=== PATIENT | male | born 1965 | race Caucasian/White ===

== ENCOUNTER 2016-08-25 09:52 | Outpatient (CLI) | payer OTHER ==
[2016-08-25 10:32] LABS: BASOPHILS % (AUTO) 0.6 % (0.0-2.0); EOSINOPHILS # (AUTO) 0.1 K/uL (0.0-0.4); EOSINOPHILS % (AUTO) 1.1 % (0.0-4.0); HEMATOCRIT 48.4 % (36-54); HEMOGLOBIN 16.4 g/dL (14.0-18.0); LYMPHOCYTES # (AUTO) 2.2 K/uL (1.0-5.5); LYMPHOCYTES % (AUTO) 32.1 % (20.5-51.5); MEAN CORPUSCULAR HEMOGLOBIN 29 pg (27-31); MEAN CORPUSCULAR HGB CONC 34 % (32-36); MEAN CORPUSCULAR VOLUME 84 fL (79.0-98.0); MONOCYTES # (AUTO) 0.3 K/uL (0.0-1.0); MONOCYTES % (AUTO) 4.7 % (1.7-9.3); NEUTROPHILS # (AUTO) 4.3 K/uL (1.8-7.7); NEUTROPHILS % (AUTO) 61.5 % (40.0-70.0); PLATELET COUNT (AUTO) 205 K/uL (130-430); RED BLOOD CELL COUNT(AUTO) 5.74 MIL/uL (4.2-6.2); RED CELL DISTRIBUTION WIDTH 12.6 % (9.0-15.0); WHITE BLOOD COUNT (AUTO) 6.9 K/uL (4.8-10.8)
[2016-08-25 10:45] LABS: ALBUMIN 4.3 g/dL (3.4-4.8); CALCIUM 9.8 mg/dL (8.4-11.0); CREATININE 0.97 mg/dL (0.55-1.30); POTASSIUM 5.1 mmol/L (3.5-5.1); TOTAL BILIRUBIN 0.5 mg/dL (0.0-1.0); TOTAL PROTEIN, SERUM 8.2 g/dL (6.4-8.3)
== END 2016-08-25 20:20 | disposition home or self-care (01) ==
LOC: SLB 09:52
PROVIDERS: ATTEND Internal Medicine
DX: K59.00 Constipation, unspecified (principal); K64.8 Other hemorrhoids
CPT/HCPCS: 36415; 80053; 85025

== ENCOUNTER 2016-10-07 07:36 | Outpatient (CLI) | payer OTHER ==
[2016-10-07] MEDS ORDERED: DIATR MEGLU/DIATRIZ SOD 30 ML SOLUTION PO ONE (08:08)
== END 2016-10-07 20:04 | disposition home or self-care (01) ==
LOC: SCT 07:36
PROVIDERS: ATTEND Internal Medicine
DX: K76.89 Other specified diseases of liver (principal); M47.896 Other spondylosis, lumbar region
CPT/HCPCS: 74176; Q9964

== ENCOUNTER 2016-11-18 10:10 | Outpatient (CLI) | payer OTHER ==
[2016-11-18 11:09] LABS: ALANINE AMINOTRANSFERASE 45 U/L (12-78); ALBUMIN 4.1 g/dL (3.4-4.8); ASPARTATE AMINOTRANSFERASE 23 U/L (10-37); BILIRUBIN,DIRECT 0.2 mg/dL (0.0-0.3); CALCIUM 9.3 mg/dL (8.4-11.0); CHLORIDE 103 mmol/L (98-107); CHOLESTEROL 225 mg/dL (<200); GLUCOSE 108 mg/dL (70-99); HDL CHOLESTEROL 44 mg/dL (>45); LDL CHOLESTEROL 161 mg/dL (<100); POTASSIUM 3.9 mmol/L (3.5-5.1); SODIUM SERUM 135 mmol/L (136-145); TOTAL BILIRUBIN 0.7 mg/dL (0.0-1.0); TOTAL PROTEIN, SERUM 7.7 g/dL (6.4-8.3); TRIGLYCERIDES 112 mg/dL (30-150); UREA NITROGEN, BLOOD 7 mg/dL (8-21)
[2016-11-18 11:15] LABS: ANION GAP < 3 (5-15); GFR AFRICAN AMERICAN 83 mL/min (>90)
[2016-11-19 13:39] LABS: HEMOGLOBIN A1C 5.8 % (4.8-5.6)
== END 2016-11-18 20:58 | disposition home or self-care (01) ==
LOC: SLB 10:10
PROVIDERS: ATTEND Internal Medicine
DX: E55.9 Vitamin D deficiency, unspecified (principal); E78.5 Hyperlipidemia, unspecified; E03.0 Congenital hypothyroidism with diffuse goiter; R73.09 Other abnormal glucose
CPT/HCPCS: 36415; 80053; 80061; 82248-TC; 82306; 83036

== ENCOUNTER 2017-01-13 11:08 | Outpatient (CLI) | payer OTHER ==
[2017-01-13 11:52] LABS: CALCIUM 8.9 mg/dL (8.4-11.0); CREATININE 0.94 mg/dL (0.55-1.30); POTASSIUM 3.9 mmol/L (3.5-5.1)
[2017-01-13 11:56] LABS: ALBUMIN 3.9 g/dL (3.4-4.8); TOTAL BILIRUBIN 0.7 mg/dL (0.0-1.0); TOTAL PROTEIN, SERUM 7.7 g/dL (6.4-8.3)
[2017-01-14 12:46] LABS: HEMOGLOBIN A1C 5.6 % (4.8-5.6)
== END 2017-01-13 20:00 | disposition home or self-care (01) ==
LOC: SLB 11:08
PROVIDERS: ATTEND Internal Medicine
DX: E78.5 Hyperlipidemia, unspecified (principal); R73.03 Prediabetes; R79.89 Other specified abnormal findings of blood chemistry
CPT/HCPCS: 36415; 80053; 80061; 82306; 83036

== ENCOUNTER 2017-05-01 07:25 | Day surgery (SDC) | payer OTHER ==
[2017-05-01] MEDS ORDERED: MEPERIDINE HCL/PF 100 MG/ML AMP ONE (08:16)
[2017-05-01] MEDS: MIDAZOLAM HCL 5 MG/5 ML VIAL ONE ×4 (10:29→10:37)
[2017-05-01 17:32] VITALS: BP_SYST 108
== END 2017-05-01 12:05 | disposition home or self-care (01) ==
LOC: SDS 07:25 → SMU 07:25 → SDS 12:05
PROVIDERS: ATTEND Internal Medicine Gastroenterology
DX: K64.8 Other hemorrhoids (principal); K57.30 Diverticulosis of large intestine without perforation or abscess without bleeding; Z87.19 Personal history of other diseases of the digestive system; E78.00 Pure hypercholesterolemia, unspecified
CPT/HCPCS: 45378; J2175; J2250

== ENCOUNTER 2017-07-22 09:30 | Outpatient (CLI) | payer OTHER ==
[2017-07-22 10:27] LABS: CALCIUM 9.4 mg/dL (8.4-11.0); CREATININE 0.89 mg/dL (0.55-1.30); POTASSIUM 4.2 mmol/L (3.5-5.1)
[2017-07-22 10:33] LABS: ALBUMIN 3.8 g/dL (3.4-4.8); TOTAL BILIRUBIN 0.9 mg/dL (0.0-1.0)
[2017-07-23 17:26] LABS: HEMOGLOBIN A1C 5.7 % (4.8-5.6)
== END 2017-07-22 19:02 | disposition home or self-care (01) ==
LOC: SLB 09:30
PROVIDERS: ATTEND Internal Medicine
DX: Z00.00 Encounter for general adult medical examination without abnormal findings (principal)
CPT/HCPCS: 36415; 80053; 80061; 82306; 83036

== ENCOUNTER 2017-09-11 07:44 | Day surgery (SDC) | payer OTHER ==
[2017-09-11] MEDS ORDERED: MIDAZOLAM HCL 5 MG/5 ML VIAL ONE ×2 (08:01→08:02)
[2017-09-11] MEDS ORDERED: MEPERIDINE HCL/PF 100 MG/ML AMP ONE (08:01)
[2017-09-11 13:54] VITALS: BP_SYST 128
== END 2017-09-11 10:30 | disposition home or self-care (01) ==
LOC: SDS 07:44 → SMU 07:44 → SDS 10:30
PROVIDERS: ATTEND Internal Medicine Gastroenterology
DX: K64.8 Other hemorrhoids (principal); K64.4 Residual hemorrhoidal skin tags; Z86.010 Personal history of colon polyps
CPT/HCPCS: 45350; J2175; J2250

== ENCOUNTER 2018-05-13 11:37 | Outpatient (CLI) | payer OTHER ==
[2018-05-13 12:30] LABS: ALBUMIN 3.9 g/dL (3.4-4.8); CALCIUM 9.4 mg/dL (8.4-11.0); CREATININE 0.86 mg/dL (0.55-1.30); POTASSIUM 3.8 mmol/L (3.5-5.1); TOTAL BILIRUBIN 0.7 mg/dL (0.0-1.0)
[2018-05-14 08:11] LABS: PROSTATE SPECIFIC AG 0.9 ng/mL (0.0-4.0)
== END 2018-05-13 18:33 | disposition home or self-care (01) ==
LOC: SLB 11:37
PROVIDERS: ATTEND Internal Medicine
DX: Z12.5 Encounter for screening for malignant neoplasm of prostate (principal); Z00.01 Encounter for general adult medical examination with abnormal findings; Z23 Encounter for immunization; E55.9 Vitamin D deficiency, unspecified
CPT/HCPCS: 36415; 80053; 80061; 82306; 83051; G0103

== ENCOUNTER 2018-05-25 05:52 | Inpatient (IN) | payer OTHER ==
[~2018-05-25] VITALS: Ht 167.6 cm; Wt 82.6 kg
[2018-05-25 05:52] VITALS: BP_SYST 152
--- NOTE | 2018-05-25 05:52 | NUR ---
Placed in room 04 . Placed on cardiac nurse, blood pressure machine and pulse oximeter. To gown for exam. Side rails up. Report given to RN.
--- NOTE | 2018-05-25 05:58 | NUR ---
Pt is AAO x 4 and ambulatory complaining left sided chest pain for about 2 and a half hours. Pt states pain does not radiate anywhere else. Pt denies N/V, fever. Per patient, at times "he feels as if he has to catch his breath." Pt speaking in full sentences. No other injuries/complaints per patient or noetd.
--- NOTE | 2018-05-25 06:23 | NUR ---
ER Dr. Robb at bedside examining patient.
[2018-05-25] MEDS ORDERED: NACL 0.9% 1,000 ML IV ONE (06:30)
[2018-05-25] MEDS ORDERED: NITROGLYCERIN 0.4 MG TAB.SUBL SL ONE (06:30)
[2018-05-25] MEDS ORDERED: ASPIRIN 81 MG TAB.CHEW PO ONE ×2 (06:30→06:45)
--- NOTE | 2018-05-25 06:31 | NUR ---
Xray at bedside. Pt tolerated well.
--- NOTE | 2018-05-25 06:47 | NUR ---
Medications were given, pt tolerated well. No adverse reaction, will continue to monitor.
[2018-05-25 07:07] LABS: BILIRUBIN,URINE NEGATIVE (NEGATIVE); BLOOD, URINE NEGATIVE (NEGATIVE); CLARITY/URINE CLEAR (CLEAR); COLOR,URINE YELLOW (YELLOW); GLUCOSE,URINE NEGATIVE (NEGATIVE); KETONES,URINE NEGATIVE (NEGATIVE); LEUKOCYTE ESTERASE ,URINE NEGATIVE (NEGATIVE); NITRITE, URINE NEGATIVE (NEGATIVE); PH,URINE 6.5 (5.0-8.0); PROTEIN URINE NEGATIVE (NEGATIVE); UROBILINOGEN,URINE 0.2 (0.2-1.0)
[2018-05-25 07:10] LABS: BASOPHILS # (AUTO) 0.1 K/uL (0.0-0.2); BASOPHILS % (AUTO) 0.9 % (0.0-2.0); EOSINOPHILS # (AUTO) 0.1 K/uL (0.0-0.4); EOSINOPHILS % (AUTO) 1.5 % (0.0-4.0); HEMOGLOBIN 15.5 g/dL (14.0-18.0); LYMPHOCYTES # (AUTO) 1.9 K/uL (1.0-5.5); LYMPHOCYTES % (AUTO) 30.9 % (20.5-51.5); MEAN CORPUSCULAR HEMOGLOBIN 29 pg (27-31); MEAN CORPUSCULAR HGB CONC 33 % (32-36); MEAN CORPUSCULAR VOLUME 88 fL (79.0-98.0); MONOCYTES # (AUTO) 0.4 K/uL (0.0-1.0); MONOCYTES % (AUTO) 6.9 % (1.7-9.3); NEUTROPHILS # (AUTO) 3.6 K/uL (1.8-7.7); NEUTROPHILS % (AUTO) 59.8 % (40.0-70.0); PLATELET COUNT (AUTO) 202 K/uL (130-430); RED BLOOD CELL COUNT(AUTO) 5.32 MIL/uL (4.2-6.2); RED CELL DISTRIBUTION WIDTH 12.4 % (9.0-15.0); WHITE BLOOD COUNT (AUTO) 6.1 K/uL (4.8-10.8)
--- NOTE | 2018-05-25 07:10 | NUR ---
Report given to PUMA Martinez. All care endorsed.
--- NOTE | 2018-05-25 07:11 | NUR ---
Pt AAO x 4 no c/o SOB, CP 2/10 tolerable per pt. Pt has noacute distress noted at this time. Continuing to monitor.
[2018-05-25 07:17] LABS: CALCIUM 9.3 mg/dL (8.4-11.0); CREATININE 0.75 mg/dL (0.55-1.30); POTASSIUM 3.7 mmol/L (3.5-5.1)
[2018-05-25 07:19] LABS: PROTHROMBIN TIME 9.9 SECS (9.5-12.5)
[2018-05-25 07:22] LABS: ALBUMIN 3.6 g/dL (3.4-4.8); TOTAL BILIRUBIN 0.5 mg/dL (0.0-1.0)
[2018-05-25 08:03] LABS: CKMB RELATIVE INDEX 0.5 (0.0-2.9); CREATINE KINASE MB 2.1 ng/mL (0-3.6)
[2018-05-25] MEDS ORDERED: ONDANSETRON HCL 4 MG/2 ML VIAL IVP PRN (08:15)
[2018-05-25] MEDS ORDERED: NITROGLYCERIN LINGUAL 400 mCg/SPRAY TL PRN (08:15)
[2018-05-25] MEDS ORDERED: ACETAMINOPHEN 325 MG TABLET PO PRN (08:15)
[2018-05-25] MEDS ORDERED: MORPHINE 2 MG/ML INJ. SYRINGE IVP PRN (08:15)
[2018-05-25] MEDS ORDERED: IBUPROFEN 800 MG TABLET PO PRN (08:15)
[2018-05-25] MEDS ORDERED: MORPHINE 4 MG/ML INJ. SYRINGE IVP PRN (08:15)
--- NOTE | 2018-05-25 08:15 | NUR ---
Patient will be admitted to care of Dr. Hinojosa. Admitted to Telemetry unit. Will go to room 102B. Summary report printed. Report will be given at bedside.
--- NOTE | 2018-05-25 08:34 | NUR ---
CONSULTATION PAGED REASON FOR CONSULTATION:CHEST PAIN WAS CONSULT CALLED?Y PERSON WHO WAS NOTIFIED:PATRIA CONSULTING PHYSICIAN:DAVID DEY DIRECTOR OF STAFF DEVELOPMENT SPECIALTY:CARDIO DIRECTOR OF STAFF DEVELOPMENT PHONE NUMBER:[phone] ORDERING PHYSICIAN:JACQUELYN TAY
--- NOTE | 2018-05-25 08:38 | NUR ---
ADMISSION NOTE Received patient from ER via yaneth, received report from Ted BARTHOLOMEW. Patient admitted with diagnosis of Chest Pain. Patient oriented to hospital routine, call light, toileting and safety-patient verbalized understanding.
--- NOTE | 2018-05-25 08:40 | NUR ---
CONSULT CARDIOLOGY CHEST PAIN DR LABOY [phone] S/W NANETTE EXCHANGE@ [phone]
[2018-05-25 08:44] VITALS: BP_SYST 146
--- NOTE | 2018-05-25 09:00 | NUR ---
OPENING NOTES, RECEIVED PT IN BED, PT CAME FROM HOME, CHIEF COMPLAIN WAS CHEST PAIN THIS AM, DX IS CHEST PAIN, PT IS AAOX4, C/O OF TOLERABLE PAIN ON THE LEFT CHEST, 09/26. NO SOB, NO RESP DISTRESS. NO EDEMA NOTED, SL ON LEFT AC #20, INTACT AND PATENT. PT EDUCATED ON THE USE OF CALL LIGHT AND TV AND BED CONTROLS. ENCOURAGED TO CALL FOR ASSIST AND PAIN MEDICATIONS. SAFETY PRECAUTION IN PLACE. CALL LIGHT IN REACH, BED IN LOW POSITION. WILL CONT TO MONITOR.
[2018-05-25] MEDS: ASPIRIN 81 MG TAB.CHEW PO SCH (09:39)
[2018-05-25 11:06] VITALS: BP_SYST 142
--- NOTE | 2018-05-25 11:28 | NUR ---
PT IN BED, NO C/O PAIN. NO SOB, NO DISTRESS. CALL LIGHT IN REACH. SAFETY PRECAUTION IN PLACE. WILL CONT TO MONITOR.
--- NOTE | 2018-05-25 12:47 | NUR ---
PT IN BED, EATING LUNCH, NO C/O PAIN. NO SOB, NO DISTRESS. PT REMINDED NO TO TAKE ANY CAFFEINE OR ANY CAFFEINE CONTAINING FOOD OR DRINKS. PT VERBALIZED UNDERSTANDING. WILL CONT TO MONITOR.
[2018-05-25] MEDS: NORMAL SALINE 5 ML DISP.SYRIN IVF SCH ×2 (14:00→21:45)
[2018-05-25 15:27] VITALS: BP_SYST 129
--- NOTE | 2018-05-25 19:05 | NUR ---
CLOSING NOTES, PT HAS BEEN STABLE, CHEST PAIN TOLERABLE. PT AWARE OF NPO ORDER FOR STRESS TEST IN AM. WILL ENDORSE TO NIGHT RN.
[2018-05-25] MEDS ORDERED: ALPRAZolam 0.25 MG TABLET PO ONE (19:15)
--- NOTE | 2018-05-25 19:40 | NUR ---
OPENING NOTE Patient resting in the bed. No acute distress. Respiration even and unlabored. AAO x 4. Denied of chest pain. Skin warm and dry to touch. SL intact to LFA, no redness, no swelling, patent. Discussed the safety issue, use call light when need help, and plan of care, verbally understanding. Safety measure maintained. Bed locked in low position, side rails up. Refused bed alarm, explain risk and benefit, verbally understanding. Call light within reached. Will continue to monitor.
[2018-05-25 19:50] VITALS: BP_SYST 136
--- NOTE | 2018-05-25 21:50 | NUR ---
XANAX GIVEN Patient c/o left chest feeling pressure and left should pain. Xanax 0.5mg Po given as ordered. No acute distress noted. Safety measure maintained. Call light within reached. Bed locked in low position, side rails up. Continue to monitor.
[2018-05-26] VITALS: BP_SYST 126
--- NOTE | 2018-05-26 04:35 | NUR ---
ROUND Patient sleeping in the bed comfortable. Respiration even and unlabored. No acute distress. Safety measure maintained. Bed locked in low position, side rails up. Call light within reached. Continue to monitor.
[2018-05-26] MEDS: NORMAL SALINE 5 ML DISP.SYRIN IVF SCH ×3 (05:24→21:08)
--- NOTE | 2018-05-26 06:41 | NUR ---
CLOSING NOTE Patient resting in the bed and watching TV. No acute distress. Respiration even and unlabored. Denied of any chest pain/discomfort. Denied of headache, dizziness. Skin warm and dry to touch. NPO since midnight. All needs met. Hourly rounding during shift. Safety measure maintained. Bed locked in low position, side rails up. Refused bed alarm, risk and benefit explained, verbally understanding. Call light within reached. Will endorse to morning shift nurse.
--- NOTE | 2018-05-26 07:50 | NUR ---
INITIAL NOTE RECEIVED PATIENT FROM GAS TENDER. PATIENT AWAKE, ALERT AND ORIENTED. PATIENT AMBULATING FROM BATHROOM WITH STEADY GAIT. DENIES ANY PAIN/DISCOMFORT AT THIS TIME. ROOM AIR. NO ACUTE DISTRESS. NO SOB. RESPIRATION EVEN AND UNLABORED. SKIN WARM AND DRY TO TOUCH. IV INTACT AND PATENT. BED IN LOW AND LOCKED POSITION. SIDERAIL UP X2. PATIENT REFUSED BED ALARM WITH RISKS EXPLAINED. ORIENTED PATIENT TO ROOM, BED AND CALL LIGHT. ALL NEEDS MET. CALL LIGHT IN REACH. CONT TO MONITOR. DISCUSSED PLAN OF CARE WITH PATIENT; PATIENT VERBALIZED UNDERSTANDING.
[2018-05-26 08:00] VITALS: BP_SYST 142
--- NOTE | 2018-05-26 08:50 | NUR ---
OFF UNIT PATIENT STABLE AND TAKEN TO NUCLEAR MEDICINE VIA WHEELCHAIR.
[2018-05-26] MEDS: ASPIRIN 81 MG TAB.CHEW PO SCH (09:00)
[2018-05-26] MEDS ORDERED: REGADENOSON 0.4 MG/5 ML SYRINGE IVP ONE (09:15)
--- NOTE | 2018-05-26 10:06 | NUR ---
ON UNIT PATIENT RETURNED FROM RADIOLOGY. VITAL SIGN STABLE. DENIES ANY PAIN/DISCOMFORT. ALL NEEDS MET. CONT TO MONITOR. CALL LIGHT IN REACH
[2018-05-26 11:24] VITALS: BP_SYST 141
--- NOTE | 2018-05-26 11:39 | NUR ---
NOTE PATIENT SITTING UP IN BED WATCHING TV. DENIES ANY PAIN/DISCOMFORT. CONT TO REFUSE BED ALARM. ALL NEEDS MET. CONT TO MONITOR. AWAITING FOR 2ND PART OF STRESS TEST AROUND 1300
--- NOTE | 2018-05-26 13:02 | NUR ---
OFF UNIT PATIENT TAKEN BACK TO RADIOLOGY VIA WHEELCHAIR. VITAL SIGN STABLE
--- NOTE | 2018-05-26 13:45 | NUR ---
ON UNIT PATIENT STABLE. RESTING IN BED. ALL NEEDS MET. PATIENT REFUSE BED ALARM. CONT TO MONITOR. CALL LIGHT IN REACH
[2018-05-26 15:21] VITALS: BP_SYST 139
--- NOTE | 2018-05-26 15:40 | NUR ---
NOTE PATIENT RESTING IN BED WATCHING TV. DENIES PAIN. NO ACUTE DISTRESS. CONT TO MONITOR. FAMILY AT BEDSIDE. CALL LIGHT IN REACH
--- NOTE | 2018-05-26 16:28 | NUR ---
SPOKE TO AND REPORTED THAT RESULTS WERE RELAYED TO BUT WANTS TO REVIEW RESULTS HIMSELF BEFORE CLEARING PATIENT. PER TO UPDATE HIM WHEN MAKES A DECISION
--- NOTE | 2018-05-26 17:18 | NUR ---
SPOKE TO ON PHONE. PER MD STRESS TEST AND NM RESULT ARE ABNORMAL AND PATIENT NEEDS AN ANGIOGRAM. STATED THAT HE SCHEDULED PATIENT FOR AN ANGIOGRAM TO BE DONE BY HIM TOMORROW 05/27/18 AT 1300 AT [facility]. SAID THAT HE HAS SPOKEN TO PATIENT ABOUT AN ANGIOGRAM BEFORE AND TO LET PATIENT KNOW THAT HE ORDERED THE ANGIOGRAM AND WILL SPEAK TO PATIENT IN THE MORNING MORE THOROUGHLY REGARDING THE PROCEDURE. Addendum: 05/26/18 at 1723 by Laura Gonzalez RN PATIENT MADE AWARE OF 'S ORDER AND OKAY FOR ANGIOGRAM TOMORROW
--- NOTE | 2018-05-26 17:22 | NUR ---
PAGED REGARDING 'S ORDER REGARDING ANGIOGRAM AT [facility] TOMORROW AT 1300
--- NOTE | 2018-05-26 17:30 | NUR ---
NOTES DISCUSSED PLAN OF CARE AND UPDATED PATIENT AND REGARDING 'S ORDER FOR AN ANGIOGRAM AT [facility] TOMORROW AT 1300; BOTH PATIENT AND VERBALIZED UNDERSTANDING WITH NO QUESTIONS AT THIS TIME. INFORMED THEM, WILL EXPLAIN MORE REGARDING PROCEDURE IN THE MORNING.
--- NOTE | 2018-05-26 17:44 | NUR ---
SPOKE TO AND REPORTED WILL ORDER AN ANGIOGRAM TOMORROW FOR 1300 AT [facility]. ORDERED ADMIT ORDER AND XANAX 0.5MG PO QHS; ORDERS CLARIFIED AND VERIFIED WITH MD AND CARRIED OUT. CONT TO MONITOR.
--- NOTE | 2018-05-26 18:25 | NUR ---
INSURANCE SPOKE TO STEPH, DIRECTOR OF CASE MANAGEMENT, AND WAS INFORMED THAT PATIENT HAS [facility] INSURANCE AND [facility] BECAUSE IT IS OUT OF NETWORK. CASE MANAGEMENT WILL FIND A HOSPITAL THAT IS IN NETWORK THAT WILL PROVIDE SERVICES AND WILL FOLLOW UP.
--- NOTE | 2018-05-26 18:30 | NUR ---
CLOSING NOTE PATIENT RESTING IN BED WATCHING TV. NO C/O PAIN/DISCOMFORT. NO ACUTE DISTRESS. NO SOB. RESPIRATION EVEN AND UNLABORED. SKIN WARM AND DRY TO TOUCH. IV INTACT AND PATENT. AMBULATES WITH STEADY GAIT. BED IN LOW AND LOCKED POSITION. SIDERAIL UPX2. REFUSE BED ALARM. ALL NEEDS MET. DISCUSSED PLAN OF CARE WITH PATIENT AND ; BOTH VERBALIZED UNDERSTANDING. CALL LIGHT IN REACH. CONT TO MONITOR. WILL ENDORSE TO ONCOMING SHIFT
--- NOTE | 2018-05-26 18:45 | NUR ---
(CARDIO) SPOKE TO AND INFORMED MD ABOUT [facility] BEING OUT OF NETWORK FROM PATIENT'S INSURANCE AND CASE MANAGEMENT WILL WORK ON FINDING A HOSPITAL THAT IS IN NETWORK. STATED TO LET HIM KNOW WHICH HOSPITAL IF IT'S IN REASONABLE HOURS TONIGHT OTHERWISE LET HIM KNOW IN THE MORNING. AND HE WILL LET KNOW
[2018-05-26 20:00] VITALS: BP_SYST 138
--- NOTE | 2018-05-26 20:00 | NUR ---
Late Entry due to Pt Care: Initial PM Note Pt is awake and not in any distress. No c/o pain or discomfort. Pt was instructed on nothing by mouth after midnight for angiogram tomorrow and pt verbalized understanding. Saline lock in LFA is without any signs of infiltration.
[2018-05-26] MEDS ORDERED: ALPRAZolam 0.25 MG TABLET PO SCH (21:00)
--- NOTE | 2018-05-26 22:00 | NUR ---
Rounds Pt is resting comfortably in bed. network security engineer is showing SR. Call light is with pt. Will continue to monitor pt.
--- NOTE | 2018-05-27 | NUR ---
Rounds Pt is sleeping comfortably in bed. Call light is with pt.
[2018-05-27 00:43] VITALS: BP_SYST 120
--- NOTE | 2018-05-27 02:00 | NUR ---
Rounds Pt is sleeping comfortably in bed. Saline lock is intact in LFA. Call light is with pt.
--- NOTE | 2018-05-27 04:00 | NUR ---
Rounds Pt is sleeping without any distress noted. Call light is with pt.
[2018-05-27] MEDS: NORMAL SALINE 5 ML DISP.SYRIN IVF SCH ×2 (05:37→14:12)
--- NOTE | 2018-05-27 06:19 | NUR ---
Closing Note Pt is awake and resting comfortably in bed. No c/o pain or discomfort. Pt is awaiting transfer to a contracted hospital for angiogram and remains NPO. No fall or injury noted this shift. Will endorse to day shift nurse.
--- NOTE | 2018-05-27 07:50 | NUR ---
Opening note patient received resting in bed, patient is awake, alert, and oriented, patient denies any pain or distress at this time, educated patient to stay NPO and rest in bed, assessment completed, educated patient on plan of care and call light system, safety precautions in place, call light within reach.
[2018-05-27 08:08] VITALS: BP_SYST 150
[2018-05-27] MEDS: ASPIRIN 81 MG TAB.CHEW PO SCH (09:00)
--- NOTE | 2018-05-27 10:06 | NUR ---
Nutrition Update Ab Scale 18 noted. Pt admitted for chest pain. Diet: NPO BMI: 29.4 kg/m2 RD to follow per nutrition care standards.
--- NOTE | 2018-05-27 10:11 | NUR ---
NOTES STILL WAITING FOR FAMILY ASSISTANT FOR UPDATES ON TRANSFER.
--- NOTE | 2018-05-27 10:46 | NUR ---
DC Planning: Late entry :8:30 am. Trying to contacted Ruby # [phone], and Angelia sayra # [phone] at [facility] dept. Both phone numbers are non working number. SAYRA was unable to get the auth for transfer at this time. dir Lizzeth made aware. >> SAYRA notified dr. López vis phone that the transfer to [facility] , photo lab specialist for angiogram scheduling at 1 pm is pending authorization from [facility]. The . recommended only inpatient angiogram. It can be at any facility.
--- NOTE | 2018-05-27 11:30 | NUR ---
Paged Dr. Hinojosa regarding patient's blood pressure.
[2018-05-27 11:50] VITALS: BP_SYST 148
--- NOTE | 2018-05-27 13:32 | NUR ---
Notes patient resting in bed, family at bedside, no signs of distress or pain noted, patient awaiting instructions about transfer from correctional case manager, no other needs at this time, will continue to monitor, safety precautions in place, call light within reach, encouraged to use call light.
--- NOTE | 2018-05-27 13:44 | NUR ---
Transfer to [facility]: Dr. Hinojosa. Dr. Rodriguez has accepted the patient and DR. Mo is going to be the pt's section leader and machine setter. The pt. has bed assigned and is ready for transfer per [facility] . Room assigned # 223 bed 2, Tele unit, RN to report # [phone]. The pt. 's referral package was faxed to [facility] fax # [phone]. The pt made aware and agreeable with the transfer to [facility]. PUMA Willams made aware. Addendum: 05/27/18 at 1438 by Kulwant Obrien RN >> Requesting ambulance auth: Faxed referral package to [facility] dept # [phone], tel # [phone]. Michelle will review the case and call be back with the approval tracking number. Then to call [facility] dept # [phone] to get the contracted ambulance. Addendum: 05/27/18 at 1551 by Kulwant Obrien RN Booked with Cristiano/Gilma Palacios , ALS transfer to [facility], district supervisor time at 1615. [facility] # [phone]. Kristal BARTHOLOMEW made aware. >> Faxed [employer], referral authorization form with an approved tracking# [id number] to [facility], billing dept fax# [phone] per Cristiano, dispatcher's request.
--- NOTE | 2018-05-27 14:16 | NUR ---
Discharge Planning: DCP ordered CD from radiology and cardiology for pt transfer packet. Addendum: 05/27/18 at 1421 by Krista Braun DP Pt will be going to [facility], [address] [place] [address] [id number]
--- NOTE | 2018-05-27 15:23 | NUR ---
prescription for xanax was given to patient as per Dr. Hinojosa.
--- NOTE | 2018-05-27 15:30 | NUR ---
NOTES GAVE REPORT TO NII AT [facility] OVER THE PHONE.
[2018-05-27 15:54] VITALS: BP_SYST 135
--- NOTE | 2018-05-27 16:35 | NUR ---
DISCHARGE D/C PT TO [facility]IA [facility], DISCHARGE PACKET WITH CDS GIVEN TO AMBULANCE STAFF, PATIENT DENIES ANY PAIN OR DISTRESS AT THIS TIME, KEPT IV LOCKED. ALL BELONGINGS SENT HOME WITH .
== END 2018-05-27 16:30 | disposition short-term general hospital (02) | DRG 204 ==
LOC: SED 05:52 → OBSVTOIN 08:05 → STU 08:05
PROVIDERS: ADMIT Internal Medicine; ATTEND Internal Medicine
DX: R06.00 Dyspnea, unspecified (principal); R07.89 Other chest pain; E78.5 Hyperlipidemia, unspecified; R73.03 Prediabetes; E55.9 Vitamin D deficiency, unspecified; K64.8 Other hemorrhoids; E78.00 Pure hypercholesterolemia, unspecified; Z79.899 Other long term (current) drug therapy
CPT/HCPCS: 36415; 71045; 80053; 81003; 82550-TC; 82553-TC; 83880; 84484; 85025; 85379; 85610-TC; 93005; 93017; 93306; 96360; 99285; A9500; J2785; J7030

== ENCOUNTER 2018-11-10 10:06 | Outpatient (CLI) | payer OTHER ==
[2018-11-10 10:56] LABS: BASOPHILS # (AUTO) 0.1 K/uL (0.0-0.2); BASOPHILS % (AUTO) 0.9 % (0.0-2.0); EOSINOPHILS # (AUTO) 0.1 K/uL (0.0-0.4); EOSINOPHILS % (AUTO) 1.3 % (0.0-4.0); HEMATOCRIT 47.7 % (36-54); HEMOGLOBIN 15.9 g/dL (14.0-18.0); LYMPHOCYTES # (AUTO) 2.6 K/uL (1.0-5.5); MEAN CORPUSCULAR HEMOGLOBIN 29 pg (27-31); MEAN CORPUSCULAR HGB CONC 33 % (32-36); MEAN CORPUSCULAR VOLUME 88 fL (79.0-98.0); MONOCYTES # (AUTO) 0.5 K/uL (0.0-1.0); MONOCYTES % (AUTO) 6.5 % (1.7-9.3); NEUTROPHILS # (AUTO) 3.8 K/uL (1.8-7.7); NEUTROPHILS % (AUTO) 54.3 % (40.0-70.0); PLATELET COUNT (AUTO) 184 K/uL (130-430); RED BLOOD CELL COUNT(AUTO) 5.42 MIL/uL (4.2-6.2); RED CELL DISTRIBUTION WIDTH 13.6 % (9.0-15.0)
[2018-11-10 10:59] LABS: ALBUMIN 3.8 g/dL (3.4-4.8); CALCIUM 9.4 mg/dL (8.4-11.0); CREATININE 0.94 mg/dL (0.55-1.30); POTASSIUM 4.2 mmol/L (3.5-5.1); TOTAL BILIRUBIN 0.6 mg/dL (0.0-1.0)
== END 2018-11-10 20:35 | disposition home or self-care (01) ==
LOC: SLB 10:06
PROVIDERS: ATTEND Internal Medicine
DX: E78.5 Hyperlipidemia, unspecified (principal); I10 Essential (primary) hypertension; R73.03 Prediabetes
CPT/HCPCS: 36415; 80053; 80061; 82306; 83036; 85025

== ENCOUNTER 2019-03-10 10:10 | Outpatient (CLI) | payer OTHER ==
[2019-03-10 11:29] LABS: ALBUMIN 3.6 g/dL (3.4-4.8); CALCIUM 9.2 mg/dL (8.4-11.0); CREATININE 0.92 mg/dL (0.55-1.30); POTASSIUM 4.2 mmol/L (3.5-5.1); TOTAL BILIRUBIN 0.5 mg/dL (0.0-1.0)
[2019-03-12 17:48] LABS: HEMOGLOBIN A1C 6.1 % (4.8-5.6)
== END 2019-03-10 20:55 | disposition home or self-care (01) ==
LOC: SLB 10:10
PROVIDERS: ATTEND Internal Medicine
DX: S30.860A Insect bite (nonvenomous) of lower back and pelvis, initial encounter (principal); I10 Essential (primary) hypertension; R73.03 Prediabetes; E78.5 Hyperlipidemia, unspecified; E55.9 Vitamin D deficiency, unspecified; R53.83 Other fatigue; X58.XXXA Exposure to other specified factors, initial encounter; Y93.89 Activity, other specified; Y92.89 Other specified places as the place of occurrence of the external cause; Y99.8 Other external cause status
CPT/HCPCS: 36415; 80053; 80061; 82306; 83036; 86788; 86789

== ENCOUNTER 2019-09-07 10:48 | Outpatient (CLI) | payer OTHER ==
[2019-09-07 12:34] LABS: ALBUMIN 3.8 g/dL (3.4-4.8); CALCIUM 9.2 mg/dL (8.4-11.0); CREATININE 0.92 mg/dL (0.55-1.30); TOTAL BILIRUBIN 0.7 mg/dL (0.0-1.0)
[2019-09-08 15:13] LABS: HEMOGLOBIN A1C 6.3 % (4.8-5.6)
== END 2019-09-07 21:13 | disposition home or self-care (01) ==
LOC: SLB 10:48
PROVIDERS: ATTEND Internal Medicine
DX: E78.5 Hyperlipidemia, unspecified (principal); I10 Essential (primary) hypertension; E55.9 Vitamin D deficiency, unspecified; R73.03 Prediabetes
CPT/HCPCS: 36415; 80053; 80061; 82306; 83036

== ENCOUNTER 2020-03-28 10:53 | Outpatient (CLI) | payer OTHER ==
[2020-03-28 12:07] LABS: ALBUMIN 3.7 g/dL (3.4-4.8); CALCIUM 9.5 mg/dL (8.4-11.0); CREATININE 0.95 mg/dL (0.55-1.30); POTASSIUM 3.8 mmol/L (3.5-5.1); TOTAL BILIRUBIN 0.8 mg/dL (0.0-1.0)
[2020-03-29 07:30] LABS: PROSTATE SPECIFIC AG 0.8 ng/mL (0.0-4.0)
== END 2020-03-28 19:52 | disposition home or self-care (01) ==
LOC: SLB 10:53
PROVIDERS: ATTEND Internal Medicine
DX: Z12.5 Encounter for screening for malignant neoplasm of prostate (principal); E78.5 Hyperlipidemia, unspecified; R73.03 Prediabetes; R79.89 Other specified abnormal findings of blood chemistry; I10 Essential (primary) hypertension
CPT/HCPCS: 36415; 80053; 80061; 82306; 83036; 84153

== ENCOUNTER 2020-04-12 08:18 | Outpatient (CLI) | payer OTHER | END 2020-04-12 20:25 | disposition home or self-care (01) | LOC: SUS 08:18 | PROVIDERS: ATTEND Internal Medicine | DX: K76.0 Fatty (change of) liver, not elsewhere classified (principal); K76.89 Other specified diseases of liver | CPT/HCPCS: 76700-TC ==

== ENCOUNTER 2020-12-13 09:37 | Outpatient (CLI) | payer OTHER ==
[2020-12-13 10:30] LABS: CHOLESTEROL 102 mg/dL (<200); HDL CHOLESTEROL 54 mg/dL (>45); LDL CHOLESTEROL 44 mg/dL (<100); TRIGLYCERIDES 57 mg/dL (30-150)
[2020-12-14 10:48] LABS: HEMOGLOBIN A1C 6.1 % (4.8-5.6)
== END 2020-12-13 20:14 | disposition home or self-care (01) ==
LOC: SLB 09:37
PROVIDERS: ATTEND Internal Medicine
DX: E11.9 Type 2 diabetes mellitus without complications (principal); I10 Essential (primary) hypertension; E78.5 Hyperlipidemia, unspecified; E55.9 Vitamin D deficiency, unspecified; R94.5 Abnormal results of liver function studies
CPT/HCPCS: 36415; 80061; 82306; 83036

== ENCOUNTER 2021-10-17 14:50 | Emergency (ER) | payer OTHER, SELFPAY ==
[~2021-10-17] VITALS: Ht 167.6 cm; Wt 81.6 kg
--- NOTE | 2021-10-17 14:59 | NUR ---
Placed in room 01 . Placed on teletypesetter monitor, blood pressure machine and pulse oximeter. To gown for exam. Side rails up.
[2021-10-17 15:00] VITALS: BP_SYST 156
--- NOTE | 2021-10-17 15:19 | NUR ---
PAtient presents to ER with chest pain for about a week now. Patient is alert and oriented x 4. Patient is resting in bed right now in no signs of distress. EKG has been ordered. Respiratory is normal with no signs of distress or labored breathing. Skin is intact, and warm. IV has been sarted. Will continue to monitor.
--- NOTE | 2021-10-17 15:19 | NUR ---
ER at bedside examining patient.
[2021-10-17 15:27] LABS: BASOPHILS # (AUTO) 0.2 K/uL (0.0-0.2); BASOPHILS % (AUTO) 3.2 % (0.0-2.0); EOSINOPHILS % (AUTO) 0.5 % (0.0-4.0); HEMATOCRIT 46.7 % (36-54); HEMOGLOBIN 15.7 g/dL (14.0-18.0); LYMPHOCYTES # (AUTO) 1.7 K/uL (1.0-5.5); LYMPHOCYTES % (AUTO) 23.6 % (20.5-51.5); MEAN CORPUSCULAR HEMOGLOBIN 29 pg (27-31); MEAN CORPUSCULAR HGB CONC 34 % (32-36); MEAN CORPUSCULAR VOLUME 86 fL (79.0-98.0); MONOCYTES # (AUTO) 0.3 K/uL (0.0-1.0); MONOCYTES % (AUTO) 4.4 % (1.7-9.3); NEUTROPHILS # (AUTO) 4.8 K/uL (1.8-7.7); NEUTROPHILS % (AUTO) 68.3 % (40.0-70.0); PLATELET COUNT (AUTO) 189 K/uL (130-430); RED BLOOD CELL COUNT(AUTO) 5.41 MIL/uL (4.2-6.2); RED CELL DISTRIBUTION WIDTH 13.6 % (9.0-15.0)
[2021-10-17 15:39] LABS: ANION GAP 8 (5-15); CALCIUM 9.6 mg/dL (8.4-11.0); CHLORIDE 102 mmol/L (98-107); CREATININE 1.04 mg/dL (0.55-1.30); GLUCOSE 128 mg/dL (70-99); POTASSIUM 3.6 mmol/L (3.5-5.1); SODIUM SERUM 138 mmol/L (136-145); UREA NITROGEN, BLOOD 9 mg/dL (8-21)
[2021-10-17 15:48] LABS: ALANINE AMINOTRANSFERASE 53 U/L (12-78); ALBUMIN 3.9 g/dL (3.4-4.8); ASPARTATE AMINOTRANSFERASE 31 U/L (10-37); LIPASE 84 U/L (73-393); TOTAL BILIRUBIN 0.4 mg/dL (0.0-1.0)
[2021-10-17 16:17] LABS: GFR AFRICAN AMERICAN 96 mL/min (>90)
[2021-10-17 18:40] VITALS: BP_SYST 156
--- NOTE | 2021-10-17 18:40 | NUR ---
Patient given written and verbal discharge instructions and verbalizes understanding. ER MD discussed with patient the results and treatment provided. Patient in stable condition. ID arm band removed. IV catheter removed intact and dressing applied, no active bleeding. Patient educated on pain management and to follow up with PMD. Pain Scale 0. Opportunity for questions provided and answered. Medication side effect fact sheet provided.
== END 2021-10-17 18:40 | disposition home or self-care (01) ==
LOC: SED 14:50
DX: I10 Essential (primary) hypertension (principal); E11.9 Type 2 diabetes mellitus without complications; R07.89 Other chest pain; Z20.822 Contact with and (suspected) exposure to COVID-19
CPT/HCPCS: 36415; 71045; 80053; 82550; 83690; 84484; 85025; 93005; 99285

== ENCOUNTER 2021-12-30 10:30 | Outpatient (CLI) | payer OTHER ==
[2021-12-30 11:18] LABS: BASOPHILS # (AUTO) 0.1 K/uL (0.0-0.2); BASOPHILS % (AUTO) 0.8 % (0.0-2.0); EOSINOPHILS # (AUTO) 0.1 K/uL (0.0-0.4); EOSINOPHILS % (AUTO) 1.1 % (0.0-4.0); HEMATOCRIT 46.5 % (36-54); LYMPHOCYTES # (AUTO) 2.3 K/uL (1.0-5.5); MEAN CORPUSCULAR HEMOGLOBIN 30 pg (27-31); MEAN CORPUSCULAR HGB CONC 35 % (32-36); MEAN CORPUSCULAR VOLUME 86 fL (79.0-98.0); MONOCYTES # (AUTO) 0.4 K/uL (0.0-1.0); MONOCYTES % (AUTO) 6.2 % (1.7-9.3); NEUTROPHILS % (AUTO) 57.9 % (40.0-70.0); PLATELET COUNT (AUTO) 221 K/uL (130-430); RED BLOOD CELL COUNT(AUTO) 5.39 MIL/uL (4.2-6.2); RED CELL DISTRIBUTION WIDTH 13.7 % (9.0-15.0); WHITE BLOOD COUNT (AUTO) 6.8 K/uL (4.8-10.8)
[2021-12-30 11:30] LABS: ALBUMIN 3.9 g/dL (3.4-4.8); BILIRUBIN,URINE NEGATIVE (NEGATIVE); BLOOD, URINE NEGATIVE (NEGATIVE); CALCIUM 8.9 mg/dL (8.4-11.0); CLARITY/URINE CLEAR (CLEAR); COLOR,URINE YELLOW (YELLOW); CREATININE 0.96 mg/dL (0.55-1.30); GLUCOSE,URINE NEGATIVE (NEGATIVE); KETONES,URINE NEGATIVE (NEGATIVE); LEUKOCYTE ESTERASE ,URINE NEGATIVE (NEGATIVE); NITRITE, URINE NEGATIVE (NEGATIVE); POTASSIUM 4.6 mmol/L (3.5-5.1); PROTEIN URINE NEGATIVE (NEGATIVE); TOTAL BILIRUBIN 0.7 mg/dL (0.0-1.0); UROBILINOGEN,URINE 0.2 (0.2-1.0)
[2021-12-31 08:06] LABS: PROSTATE SPECIFIC AG 1.2 ng/mL (0.0-4.0)
[2021-12-31 13:39] LABS: HEMOGLOBIN A1C 6.1 % (4.8-5.6)
== END 2021-12-30 20:35 | disposition home or self-care (01) ==
LOC: SLB 10:30
PROVIDERS: ATTEND Internal Medicine
DX: Z12.5 Encounter for screening for malignant neoplasm of prostate (principal); I10 Essential (primary) hypertension; E11.9 Type 2 diabetes mellitus without complications; E78.5 Hyperlipidemia, unspecified; E55.9 Vitamin D deficiency, unspecified; Z68.29 Body mass index [BMI] 29.0-29.9, adult
CPT/HCPCS: 36415; 80053; 80061; 81003; 82043; 82306; 82570; 83036; 84153; 85025; 87086

== ENCOUNTER 2022-08-05 09:45 | Outpatient (CLI) | payer OTHER ==
[2022-08-05 11:48] LABS: ALBUMIN 3.9 g/dL (3.4-4.8); CALCIUM 9.5 mg/dL (8.4-11.0); CREATININE 0.89 mg/dL (0.55-1.30); TOTAL BILIRUBIN 0.7 mg/dL (0.0-1.0)
== END 2022-08-05 19:30 | disposition home or self-care (01) ==
LOC: SLB 09:45
PROVIDERS: ATTEND Internal Medicine
DX: I10 Essential (primary) hypertension (principal); E78.5 Hyperlipidemia, unspecified; E55.9 Vitamin D deficiency, unspecified
CPT/HCPCS: 36415; 80053; 80061; 82306; 83036

== ENCOUNTER 2022-09-17 07:24 | Outpatient (CLI) | payer OTHER ==
[2022-09-17 07:46] LABS: BASOPHILS # (AUTO) 0.1 K/uL (0.0-0.2); BASOPHILS % (AUTO) 0.7 % (0.0-2.0); EOSINOPHILS # (AUTO) 0.1 K/uL (0.0-0.4); EOSINOPHILS % (AUTO) 1.5 % (0.0-4.0); HEMOGLOBIN 15.3 g/dL (14.0-18.0); LYMPHOCYTES # (AUTO) 2.3 K/uL (1.0-5.5); LYMPHOCYTES % (AUTO) 32.6 % (20.5-51.5); MEAN CORPUSCULAR HEMOGLOBIN 30 pg (27-31); MEAN CORPUSCULAR HGB CONC 34 % (32-36); MEAN CORPUSCULAR VOLUME 87 fL (79.0-98.0); MONOCYTES # (AUTO) 0.5 K/uL (0.0-1.0); MONOCYTES % (AUTO) 7.1 % (1.7-9.3); NEUTROPHILS % (AUTO) 58.1 % (40.0-70.0); PLATELET COUNT (AUTO) 188 K/uL (130-430); RED BLOOD CELL COUNT(AUTO) 5.17 MIL/uL (4.2-6.2); RED CELL DISTRIBUTION WIDTH 13.5 % (9.0-15.0); WHITE BLOOD COUNT (AUTO) 6.9 K/uL (4.8-10.8)
[2022-09-17 08:46] LABS: ALBUMIN 3.8 g/dL (3.4-4.8); CALCIUM 9.3 mg/dL (8.4-11.0); CREATININE 0.97 mg/dL (0.55-1.30); THYROID STIMULATING HORMONE 2.77 uIu/mL (0.34-4.82); TOTAL BILIRUBIN 0.6 mg/dL (0.0-1.0)
== END 2022-09-17 17:52 | disposition home or self-care (01) ==
LOC: SLB 07:24
PROVIDERS: ATTEND Internal Medicine
DX: E11.9 Type 2 diabetes mellitus without complications (principal); I10 Essential (primary) hypertension; E78.5 Hyperlipidemia, unspecified; E55.9 Vitamin D deficiency, unspecified
CPT/HCPCS: 36415; 80053; 80061; 82306; 83037; 84443; 85025

== ENCOUNTER 2022-12-17 07:08 | Outpatient (CLI) | payer OTHER ==
[2022-12-17 07:54] LABS: ALBUMIN 3.7 g/dL (3.4-4.8); CREATININE 0.96 mg/dL (0.55-1.30); TOTAL BILIRUBIN 0.5 mg/dL (0.0-1.0)
== END 2022-12-17 19:15 | disposition home or self-care (01) ==
LOC: SLB 07:08
PROVIDERS: ATTEND Internal Medicine
DX: Z12.5 Encounter for screening for malignant neoplasm of prostate (principal); E11.9 Type 2 diabetes mellitus without complications; E78.5 Hyperlipidemia, unspecified; I10 Essential (primary) hypertension
CPT/HCPCS: 36415; 80053; 80061; 83037; 84153

== ENCOUNTER 2023-01-14 07:36 | Outpatient (CLI) | payer OTHER ==
[2023-01-14 09:00] LABS: BILIRUBIN,URINE NEGATIVE (NEGATIVE); GLUCOSE,URINE NEGATIVE (NEGATIVE); KETONES,URINE NEGATIVE (NEGATIVE); LEUKOCYTE ESTERASE ,URINE NEGATIVE (NEGATIVE); NITRITE, URINE NEGATIVE (NEGATIVE); PROTEIN URINE NEGATIVE (NEGATIVE); UROBILINOGEN,URINE 0.2 (0.2-1.0)
[2023-01-14 09:05] LABS: BLOOD, URINE TRACE (NEGATIVE); CLARITY/URINE SLIGHTLY HAZY (CLEAR); COLOR,URINE YELLOW (YELLOW)
[2023-01-14 09:16] LABS: BACTERIA,URINE FEW /HPF (None Seen); RBC,URINE 0-3 /HPF (0-3); WBC,URINE NONE SEEN /HPF (0-3)
== END 2023-01-14 20:02 | disposition home or self-care (01) ==
LOC: SLB 07:36
PROVIDERS: ATTEND Internal Medicine
DX: R30.0 Dysuria (principal)
CPT/HCPCS: 36415; 81000; 87086; 87491

== ENCOUNTER 2023-01-29 09:58 | Outpatient (CLI) | payer OTHER | END 2023-01-29 18:14 | disposition home or self-care (01) | LOC: SCT 09:58 | PROVIDERS: ATTEND Internal Medicine | DX: R10.9 Unspecified abdominal pain (principal) | CPT/HCPCS: 76376 ==

== ENCOUNTER 2023-02-01 12:05 | Emergency (ER) | payer OTHER ==
[~2023-02-01] VITALS: Ht 167.6 cm; Wt 83.0 kg
--- NOTE | 2023-02-01 12:06 | NUR ---
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
--- NOTE | 2023-02-01 12:15 | NUR ---
Dr Valdivia evaluating patient at bedside
[2023-02-01 12:45] VITALS: BP_SYST 148; PULSE 103; RESP 22; TEMP 98.3; O2SAT 97
[2023-02-01 12:46] LABS: BASOPHILS # (AUTO) 0.1 K/uL (0.0-0.2); BASOPHILS % (AUTO) 0.9 % (0.0-2.0); EOSINOPHILS % (AUTO) 0.5 % (0.0-4.0); HEMOGLOBIN 16.3 g/dL (14.0-18.0); LYMPHOCYTES # (AUTO) 2.1 K/uL (1.0-5.5); LYMPHOCYTES % (AUTO) 25.4 % (20.5-51.5); MEAN CORPUSCULAR HEMOGLOBIN 29 pg (27-31); MEAN CORPUSCULAR HGB CONC 33 % (32-36); MEAN CORPUSCULAR VOLUME 88 fL (79.0-98.0); MONOCYTES # (AUTO) 0.5 K/uL (0.0-1.0); MONOCYTES % (AUTO) 6.5 % (1.7-9.3); NEUTROPHILS # (AUTO) 5.4 K/uL (1.8-7.7); NEUTROPHILS % (AUTO) 66.7 % (40.0-70.0); PLATELET COUNT (AUTO) 223 K/uL (130-430); RED BLOOD CELL COUNT(AUTO) 5.59 MIL/uL (4.2-6.2); RED CELL DISTRIBUTION WIDTH 13.7 % (9.0-15.0); WHITE BLOOD COUNT (AUTO) 8.1 K/uL (4.8-10.8)
[2023-02-01 12:56] LABS: ANION GAP 6 (5-15); CALCIUM 9.4 mg/dL (8.4-11.0); CHLORIDE 101 mmol/L (98-107); CREATININE 0.99 mg/dL (0.55-1.30); GFR AFRICAN AMERICAN 101 mL/min (>90); GLUCOSE 126 mg/dL (74-106); UREA NITROGEN, BLOOD 8 mg/dL (8-21)
--- NOTE | 2023-02-01 13:03 | NUR ---
Urine sent to the lab
[2023-02-01 13:09] LABS: BILIRUBIN,URINE NEGATIVE (NEGATIVE); BLOOD, URINE NEGATIVE (NEGATIVE); CLARITY/URINE CLEAR (CLEAR); COLOR,URINE YELLOW (YELLOW); GLUCOSE,URINE NEGATIVE (NEGATIVE); KETONES,URINE NEGATIVE (NEGATIVE); LEUKOCYTE ESTERASE ,URINE NEGATIVE (NEGATIVE); NITRITE, URINE NEGATIVE (NEGATIVE); PROTEIN URINE NEGATIVE (NEGATIVE); UROBILINOGEN,URINE 0.2 (0.2-1.0)
[2023-02-01 13:10] LABS: ALANINE AMINOTRANSFERASE 32 U/L (12-78); AMYLASE 60 U/L (0-100); ASPARTATE AMINOTRANSFERASE 17 U/L (10-37); LACTATE DEHYDROGENASE 142 U/L (85-227); LIPASE 76 U/L (73-393); TOTAL BILIRUBIN 0.6 mg/dL (0.0-1.0)
[2023-02-01 13:13] LABS: PROTHROMBIN TIME 10.2 SECS (9.5-12.5)
[2023-02-01 13:20] LABS: ACETONE, SERUM NEGATIVE (NEGATIVE)
[2023-02-01] MEDS ORDERED: OMEP20CA15 PO (13:43)
[2023-02-01] MEDS ORDERED: CIPR500T5 PO (13:43)
[2023-02-01] MEDS ORDERED: TRAM50TA2 PO (13:43)
[2023-02-01 13:59] VITALS: BP_SYST 148; PULSE 103; RESP 22; TEMP 98.3; O2SAT 97
--- NOTE | 2023-02-01 14:01 | NUR ---
Patient given written and verbal discharge instructions and verbalizes understanding. ER MD discussed with patient the results and treatment provided. Patient in stable condition. ID arm band removed. Rx of Cipro,Omeprazole,ultram given. Patient educated on pain management and to follow up with PMD. Pain Scale 2/10. Opportunity for questions provided and answered. Medication side effect fact sheet provided.
== END 2023-02-01 14:01 | disposition home or self-care (01) ==
LOC: SED 12:05
DX: N45.2 Orchitis (principal); R10.12 Left upper quadrant pain; N50.812 Left testicular pain; E11.9 Type 2 diabetes mellitus without complications; I10 Essential (primary) hypertension; E78.00 Pure hypercholesterolemia, unspecified; Z79.899 Other long term (current) drug therapy
CPT/HCPCS: 36415; 71045; 80053; 81003; 82009; 82150; 83605; 83615; 83690; 84484; 85025; 85610-TC; 85730-TC; 99284

== ENCOUNTER 2023-02-12 10:02 | Outpatient (CLI) | payer OTHER ==
[~2023-02-12 10:02] MED LIST: CIPR500T5 PO; OMEP20CA15 PO; TRAM50TA2 PO
== END 2023-02-12 19:40 | disposition home or self-care (01) ==
LOC: SUS 10:02
PROVIDERS: ATTEND Internal Medicine
DX: I86.1 Scrotal varices (principal); N50.3 Cyst of epididymis; N50.82 Scrotal pain
CPT/HCPCS: 76870-TC

== ENCOUNTER 2023-06-03 08:36 | Outpatient (CLI) | payer OTHER | END 2023-06-03 19:45 | disposition home or self-care (01) | LOC: SUS 08:36 | PROVIDERS: ATTEND Internal Medicine | DX: K76.89 Other specified diseases of liver (principal); R10.9 Unspecified abdominal pain | CPT/HCPCS: 76705 ==

== ENCOUNTER 2023-06-12 07:28 | Outpatient (CLI) | payer OTHER ==
[2023-06-12 08:07] LABS: ALBUMIN 3.7 g/dL (3.4-4.8); CALCIUM 9.7 mg/dL (8.4-11.0); CREATININE 0.91 mg/dL (0.55-1.30); POTASSIUM 4.5 mmol/L (3.5-5.1); TOTAL BILIRUBIN 0.3 mg/dL (0.0-1.0); TOTAL PROTEIN, SERUM 7.2 g/dL (6.4-8.3)
== END 2023-06-12 18:57 | disposition home or self-care (01) ==
LOC: SLB 07:28
PROVIDERS: ATTEND Internal Medicine
DX: Z00.00 Encounter for general adult medical examination without abnormal findings (principal); I10 Essential (primary) hypertension; E11.9 Type 2 diabetes mellitus without complications; E78.5 Hyperlipidemia, unspecified
CPT/HCPCS: 36415; 80053; 80061; 83037

== ENCOUNTER 2023-07-01 11:43 | Emergency (ER) | payer OTHER ==
[~2023-07-01] VITALS: Ht 167.6 cm; Wt 81.6 kg
[2023-07-01 11:50] VITALS: BP_SYST 127; PULSE 86; RESP 18; TEMP 96.8; O2SAT 95
[2023-07-01 12:21] LABS: BASOPHILS # (AUTO) 0.1 K/uL (0.0-0.2); BASOPHILS % (AUTO) 0.7 % (0.0-2.0); EOSINOPHILS # (AUTO) 0.1 K/uL (0.0-0.4); EOSINOPHILS % (AUTO) 0.8 % (0.0-4.0); HEMATOCRIT 46.5 % (36-54); HEMOGLOBIN 15.5 g/dL (14.0-18.0); LYMPHOCYTES # (AUTO) 2.1 K/uL (1.0-5.5); LYMPHOCYTES % (AUTO) 28.3 % (20.5-51.5); MEAN CORPUSCULAR HEMOGLOBIN 29 pg (27-31); MEAN CORPUSCULAR HGB CONC 33 % (32-36); MEAN CORPUSCULAR VOLUME 86 fL (79.0-98.0); MONOCYTES # (AUTO) 0.5 K/uL (0.0-1.0); MONOCYTES % (AUTO) 6.5 % (1.7-9.3); NEUTROPHILS # (AUTO) 4.6 K/uL (1.8-7.7); NEUTROPHILS % (AUTO) 63.7 % (40.0-70.0); PLATELET COUNT (AUTO) 204 K/uL (130-430); RED BLOOD CELL COUNT(AUTO) 5.39 MIL/uL (4.2-6.2); RED CELL DISTRIBUTION WIDTH 13.4 % (9.0-15.0); WHITE BLOOD COUNT (AUTO) 7.3 K/uL (4.8-10.8)
[2023-07-01 12:23] LABS: ERYTHROCYTE SEDIMENTATION RATE 10 MM/HR (0-15)
[2023-07-01 12:32] LABS: ANION GAP 7 (5-15); CARBON DIOXIDE 27 mmol/L (23-29); CHLORIDE 102 mmol/L (98-107); CREATININE 0.91 mg/dL (0.55-1.30); GFR AFRICAN AMERICAN 111 mL/min (>90); GLUCOSE 120 mg/dL (74-106); POTASSIUM 3.9 mmol/L (3.5-5.1); SODIUM SERUM 136 mmol/L (136-145); UREA NITROGEN, BLOOD 11 mg/dL (8-21)
[2023-07-01 12:35] LABS: GFR NON AFRICAN-AMERICAN 92 mL/min (>90)
[2023-07-01 12:36] LABS: PROTHROMBIN TIME 10.3 SECS (9.5-12.5)
[2023-07-01 12:56] VITALS: BP_SYST 127; PULSE 86; RESP 18; TEMP 96.8; O2SAT 95
== END 2023-07-01 12:56 | disposition home or self-care (01) ==
LOC: SED 11:43
DX: R51.9 Headache, unspecified (principal); R20.2 Paresthesia of skin; I10 Essential (primary) hypertension; E11.9 Type 2 diabetes mellitus without complications; E78.00 Pure hypercholesterolemia, unspecified; Z79.899 Other long term (current) drug therapy
CPT/HCPCS: 36415; 70450-TC; 71045; 76376; 80048; 84484; 85025; 85610-TC; 85651-TC; 85730-TC; 99284

== ENCOUNTER 2023-09-08 07:44 | Outpatient (CLI) | payer OTHER | END 2023-09-08 18:00 | disposition home or self-care (01) | LOC: SLB 07:44 | PROVIDERS: ATTEND Urology | DX: Z12.5 Encounter for screening for malignant neoplasm of prostate (principal) | CPT/HCPCS: 36415; 84153 ==

== ENCOUNTER 2023-09-29 09:41 | Emergency (ER) | payer OTHER ==
[~2023-09-29] VITALS: Ht 167.6 cm; Wt 81.6 kg
[2023-09-29 09:50] VITALS: BP_SYST 129; PULSE 86; RESP 15; TEMP 97.2; O2SAT 96
[2023-09-29] MEDS ORDERED: ZIT250 PO (10:09)
[2023-09-29] MEDS ORDERED: PRED50TA PO (10:09)
[2023-09-29] MEDS ORDERED: TRAM50TA2 PO (10:09)
[2023-09-29 10:17] VITALS: BP_SYST 122; PULSE 91; RESP 16; TEMP 98.2; O2SAT 95
== END 2023-09-29 10:16 | disposition home or self-care (01) ==
LOC: SED 09:41
DX: K12.2 Cellulitis and abscess of mouth (principal); J02.9 Acute pharyngitis, unspecified; R05.9 Cough, unspecified; E11.9 Type 2 diabetes mellitus without complications; I10 Essential (primary) hypertension; E78.00 Pure hypercholesterolemia, unspecified; Z79.899 Other long term (current) drug therapy
CPT/HCPCS: 99283

== ENCOUNTER 2023-10-26 07:44 | Outpatient (CLI) | payer OTHER ==
[~2023-10-26 07:44] MED LIST changes: +PRED50TA PO; +ZIT250 PO
[2023-10-26 08:25] LABS: BASOPHILS % (AUTO) 0.6 % (0.0-2.0); EOSINOPHILS # (AUTO) 0.1 K/uL (0.0-0.4); EOSINOPHILS % (AUTO) 1.7 % (0.0-4.0); HEMATOCRIT 46.8 % (36-54); HEMOGLOBIN 16.2 g/dL (14.0-18.0); LYMPHOCYTES # (AUTO) 1.7 K/uL (1.0-5.5); LYMPHOCYTES % (AUTO) 35.8 % (20.5-51.5); MEAN CORPUSCULAR HEMOGLOBIN 30 pg (27-31); MEAN CORPUSCULAR HGB CONC 35 % (32-36); MEAN CORPUSCULAR VOLUME 88 fL (79.0-98.0); MONOCYTES # (AUTO) 0.3 K/uL (0.0-1.0); MONOCYTES % (AUTO) 6.1 % (1.7-9.3); NEUTROPHILS # (AUTO) 2.7 K/uL (1.8-7.7); NEUTROPHILS % (AUTO) 55.8 % (40.0-70.0); PLATELET COUNT (AUTO) 192 K/uL (130-430); RED BLOOD CELL COUNT(AUTO) 5.34 MIL/uL (4.2-6.2); RED CELL DISTRIBUTION WIDTH 13.6 % (9.0-15.0); WHITE BLOOD COUNT (AUTO) 4.8 K/uL (4.8-10.8)
[2023-10-26 08:53] LABS: ALBUMIN 3.6 g/dL (3.4-4.8); CALCIUM 9.7 mg/dL (8.4-11.0); CREATININE 0.92 mg/dL (0.55-1.30); POTASSIUM 4.4 mmol/L (3.5-5.1); TOTAL BILIRUBIN 0.4 mg/dL (0.0-1.0); TOTAL PROTEIN, SERUM 7.3 g/dL (6.4-8.3)
== END 2023-10-26 19:08 | disposition home or self-care (01) ==
LOC: SLB 07:44
PROVIDERS: ATTEND Internal Medicine
DX: E11.9 Type 2 diabetes mellitus without complications (principal); I10 Essential (primary) hypertension; K76.0 Fatty (change of) liver, not elsewhere classified; E78.5 Hyperlipidemia, unspecified; E55.9 Vitamin D deficiency, unspecified
CPT/HCPCS: 36415; 80053; 80061; 83037; 85025

== ENCOUNTER 2024-01-06 07:32 | Outpatient (CLI) | payer OTHER ==
[2024-01-06 08:19] LABS: ALBUMIN 3.6 g/dL (3.4-4.8); BILIRUBIN,DIRECT 0.1 mg/dL (0.0-0.3); TOTAL BILIRUBIN 0.6 mg/dL (0.0-1.0); TOTAL PROTEIN, SERUM 7.3 g/dL (6.4-8.3)
== END 2024-01-06 21:06 | disposition home or self-care (01) ==
LOC: SLB 07:32
PROVIDERS: ATTEND Internal Medicine Cardiovascular Disease
DX: E78.5 Hyperlipidemia, unspecified (principal)
CPT/HCPCS: 36415; 80061; 80076

== ENCOUNTER 2024-03-09 11:15 | Emergency (ER) | payer OTHER ==
[~2024-03-09] VITALS: Ht 167.6 cm; Wt 77.1 kg
[2024-03-09 11:23] VITALS: BP_SYST 116; PULSE 113; RESP 19; TEMP 98; O2SAT 97
[2024-03-09 11:41] LABS: BILIRUBIN,URINE NEGATIVE (NEGATIVE); BLOOD, URINE NEGATIVE (NEGATIVE); CLARITY/URINE CLEAR (CLEAR); COLOR,URINE YELLOW (YELLOW); GLUCOSE,URINE NEGATIVE (NEGATIVE); KETONES,URINE NEGATIVE (NEGATIVE); LEUKOCYTE ESTERASE ,URINE NEGATIVE (NEGATIVE); NITRITE, URINE NEGATIVE (NEGATIVE); PROTEIN URINE NEGATIVE (NEGATIVE); UROBILINOGEN,URINE 0.2 (0.2-1.0)
[2024-03-09 11:50] VITALS: BP_SYST 116; PULSE 113; RESP 19; TEMP 98; O2SAT 97
[2024-03-09 12:22] LABS: BASOPHILS % (AUTO) 0.5 % (0.0-2.0); EOSINOPHILS % (AUTO) 0.5 % (0.0-4.0); HEMATOCRIT 48.8 % (36-54); HEMOGLOBIN 16.4 g/dL (14.0-18.0); LYMPHOCYTES # (AUTO) 1.1 K/uL (1.0-5.5); LYMPHOCYTES % (AUTO) 13.7 % (20.5-51.5); MEAN CORPUSCULAR HEMOGLOBIN 30 pg (27-31); MEAN CORPUSCULAR HGB CONC 34 % (32-36); MEAN CORPUSCULAR VOLUME 88 fL (79.0-98.0); MONOCYTES # (AUTO) 0.6 K/uL (0.0-1.0); MONOCYTES % (AUTO) 7.6 % (1.7-9.3); NEUTROPHILS % (AUTO) 77.7 % (40.0-70.0); PLATELET COUNT (AUTO) 204 K/uL (130-430); RED BLOOD CELL COUNT(AUTO) 5.55 MIL/uL (4.2-6.2); RED CELL DISTRIBUTION WIDTH 13.7 % (9.0-15.0); WHITE BLOOD COUNT (AUTO) 7.7 K/uL (4.8-10.8)
[2024-03-09 12:40] LABS: POTASSIUM 4.3 mmol/L (3.5-5.1)
[2024-03-09 12:45] LABS: PROTHROMBIN TIME 10.3 SECS (9.5-12.5)
[2024-03-09 13:19] LABS: ALBUMIN 4.2 g/dL (3.4-4.8); BILIRUBIN,DIRECT 0.1 mg/dL (0.0-0.3); CALCIUM 9.8 mg/dL (8.4-11.0); CREATININE 0.86 mg/dL (0.55-1.30); TOTAL BILIRUBIN 0.7 mg/dL (0.0-1.0); TOTAL PROTEIN, SERUM 7.9 g/dL (6.4-8.3)
== END 2024-03-09 15:23 | disposition home or self-care (01) ==
LOC: SED 11:15
DX: R10.13 Epigastric pain (principal); E11.9 Type 2 diabetes mellitus without complications; I10 Essential (primary) hypertension; E78.00 Pure hypercholesterolemia, unspecified; Z79.899 Other long term (current) drug therapy; Z79.2 Long term (current) use of antibiotics
CPT/HCPCS: 36415; 80048; 80076; 81001; 81003; 82150; 83605; 83615; 83690; 84484; 85025; 85610; 85730; 99284

== ENCOUNTER 2024-03-31 07:42 | Outpatient (CLI) | payer OTHER ==
[2024-03-31 08:58] LABS: ALBUMIN 3.8 g/dL (3.4-4.8); CALCIUM 9.7 mg/dL (8.4-11.0); CREATININE 1.03 mg/dL (0.55-1.30); POTASSIUM 4.6 mmol/L (3.5-5.1); TOTAL BILIRUBIN 0.6 mg/dL (0.0-1.0); TOTAL PROTEIN, SERUM 7.5 g/dL (6.4-8.3)
== END 2024-03-31 19:38 | disposition home or self-care (01) ==
LOC: SLB 07:42
PROVIDERS: ATTEND Internal Medicine
DX: I10 Essential (primary) hypertension (principal); E11.9 Type 2 diabetes mellitus without complications; E78.5 Hyperlipidemia, unspecified; F41.1 Generalized anxiety disorder
CPT/HCPCS: 36415; 80053; 80061; 83037